=== PATIENT | male | born 1980 | race Caucasian/White ===

== ENCOUNTER 2020-11-01 18:23 | Emergency (ER) | payer BC ==
[~2020-11-01] VITALS: Ht 170.2 cm; Wt 90.9 kg
[2020-11-01] MEDS ORDERED: glucagon, human recombinant 1mg kit IV ONE (19:35)
[2020-11-01 20:06] VITALS: BP 134/78
== END 2020-11-01 20:08 | disposition home or self-care (01) ==
LOC: ER 18:24
DX: T18.9XXA Foreign body of alimentary tract, part unspecified, initial encounter (principal); X58.XXXA Exposure to other specified factors, initial encounter; Y93.89 Activity, other specified; Y92.89 Other specified places as the place of occurrence of the external cause; Y99.8 Other external cause status
CPT/HCPCS: 96374; 99283; J1610